=== PATIENT | male | born 1950 | race Caucasian/White ===

== ENCOUNTER 2016-06-25 18:21 | Emergency (ER) | payer MEDICARE ==
[~2016-06-25] VITALS: Ht 180.3 cm; Wt 117.1 kg
[~2016-06-25 18:21] MED LIST: AMLO5 PO; ASPI81CH CHEW; CHLORO250 PO; DICL75TA PO; ENAL20TA PO; FENO48TA PO; GLIM4TAB PO; GLUC500C5 PO; HYDR-3533 PO; HYDR25TA5 PO; METO100T PO; MULTCAP13 PO; NIAC500T5 PO; OMEP20TA PO; PRAV40TA2 PO; PROM25TA5 PO; SPIRCAP INH; SYMB160A INH; ZITHTAB PO
[2016-06-25 18:31] VITALS: BP 148/81; PULSE 67; RESP 16; TEMP 99.2; O2SAT 96
[2016-06-25] MEDS ORDERED: LOSA100T PO (19:02)
[2016-06-25] MEDS ORDERED: ALPR0.5T3 PO (19:02)
[2016-06-25] MEDS ORDERED: CYCL1TAB29 PO (20:05)
[2016-06-25] MEDS ORDERED: MOBI15TA PO (20:05)
--- NOTE | 2016-06-25 20:06 | PD ---
HPI Chief Complaint: Pain: Acute or Chronic Time Seen by Provider: 19:31 Travel History International Travel<30 days: No Contact w/Intl Traveler<30days: No Traveled to known affect area: No History of Present Illness HPI The patient is a 66-year-old male with a history of chronic back pain who complains of left back pain radiating to the left abdominal area. The patient has had multiple MRIs, his latest was in March of the back and nothing surgical, be done about this. The patient states he took 2 hydrocodone tablets today and the pain is starting to go away, the hydrocodone is taking effect. He is followed by Dr. Gabriel for this pain. The hydrocodone was written by Dr. Michael Thayer. The patient has been seen multiple times in the last few months for this pain. PFSH Past Medical History Hx Anticoagulant Therapy: Yes (asa 81mg) Arthritis: Yes Anxiety: Yes Depression: No Heart Rhythm Problems: No Cancer: No Cardiovascular Problems: Yes (htn on med) High Cholesterol: Yes Chemotherapy: No Chest Pain: No COPD: Yes Cerebrovascular Accident: No Diabetes: Yes (type 2) Patient Takes Glucophage: No Diminished Hearing: No Endocrine: Yes Gastrointestinal Disorders: Yes GERD: Yes Glaucoma: No Genitourinary: No Hepatitis: No Hiatal Hernia: No Hypertension: Yes Musculoskeletal: Yes (scoliosis, DDD) Neurologic: Yes Psychiatric: Yes Reproductive: No Respiratory: Yes (copd) Integumentary: No Immunizations Current: Yes Thyroid Disease: No Ulcer: Yes Tetanus Vaccination: > 5 Years Past Surgical History Hysterectomy: No Thoracic Surgery: No Other Surgery: Yes (COLONOSCOPY Mar) Social History Alcohol Use: Yes (OCCASSIONAL) Tobacco Use: No (quit November,) Substance Use: No Allergies-Medications (Allergen,Severity, Reaction): Coded Allergies: No Known Allergies (Unverified , 06/25/16) Reported Meds & Prescriptions Reported Meds & Active Scripts Active Lortab (Hydrocodone-Acetaminophen) 5-325 Mg Tab 1 Tab PO Q6H PRN Reported Alprazolam 0.5 Mg Tab 0.5 Mg PO HS PRN Losartan (Losartan Potassium) 100 Mg Tab 100 Mg PO DAILY Norvasc (Amlodipine Besylate) 5 Mg Tab 5 Mg PO DAILY Aspirin 81 Mg Chew 81 Mg CHEW DAILY Multi Complete (Multiple Vitamins W/ Minerals) 1 Cap Cap 1 Cap PO DAILY Niacin 500 Mg Tab 500 Mg PO TID Fenofibrate 48 Mg Tab 160 Mg PO HS Omeprazole 20 Mg Tab 20 Mg PO HS Symbicort Inh (Budesonide/Formoterol Fumarate) 160-4.5 Mcg/Act Aero 2 Puff INH Q12HR Glimepiride 4 Mg Tab 4 Mg PO DAILY Take with breakfast or first main meal Hydrochlorothiazide 25 Mg Tab 25 Mg PO DAILY Diclofenac Sodium DR (Diclofenac Sodium) 75 Mg Tabdr 75 Mg PO BID Metoprolol Tartrate 100 Mg Tab 50 Mg PO BID Pravastatin 40 Mg Tab 40 Mg PO HS Review of Systems Except as stated in HPI: all other systems reviewed are Neg Physical Exam Narrative GENERAL: The patient is alert, oriented 3 in moderate apparent distress with his back pain. His blood pressure is 148/81, temperature 99.2 but the rest the vital signs are normal. SKIN: Warm and dry. No skin rash is seen. There is an apparent lipoma/fatty tumor on the back that the is concerned about that the patient has no symptoms with this. HEAD: Atraumatic. Normocephalic. EYES: Pupils equal and round. No scleral icterus. No injection or drainage. ENT: No nasal bleeding or discharge. Mucous membranes pink and moist. NECK: Trachea midline. No JVD. CARDIOVASCULAR: Regular rate and rhythm. No murmur appreciated. RESPIRATORY: No accessory muscle use. Clear to auscultation. Breath sounds equal bilaterally. GASTROINTESTINAL: Abdomen soft, non-tender, nondistended. Hepatic and splenic margins not palpable. MUSCULOSKELETAL: No obvious deformities. No clubbing. No cyanosis. No edema. There is tenderness over the left back diffusely, well away from the thoracic or lumbar spine. No deformities noted. Straight leg raising is normal NEUROLOGICAL: Awake and alert. No obvious cranial nerve deficits. Motor grossly within normal limits. Normal speech. PSYCHIATRIC: Appropriate mood and affect; insight and judgment normal. Data Data Last Documented VS Vital Signs Date Time Temp Pulse Resp B/P Pulse Ox O2 Delivery O2 Flow Rate FiO2 06/25/16 18:31 99.2 67 16 148/81 96 MDM Medical Decision Making Medical Screen Exam Complete: Yes Emergency Medical Condition: Yes Medical Record Reviewed: Yes Differential Diagnosis Acute exacerbation of chronic back pain, herniated nucleus pulposus Narrative Course The patient has acute exacerbation of chronic back pain. Apparently, there is no surgical solution for this and the patient will need to follow-up with Dr. Gabriel for pain control. Plan: The patient can take the medication written by Dr. Thayer. I will add Flexeril and Mobic to his pain regimen. He needs to follow-up with Dr. Gabriel. Additional Instructions: As we discussed, follow-up with Dr. Gabriel. The Flexeril is 3 times daily and the Mobic is once daily. Med/Other Pt SpecificInfo: Prescription(s) given Scripts Cyclobenzaprine (Flexeril)10 Mg Tab10 Mg PO TID #60 TAB Ref 0 Prov:Landon Hawthorne MD 06/25/16 Meloxicam (Mobic)15 Mg Tab15 Mg PO DAILY #30 TAB Ref 0 Prov:Landon Hawthorne MD 06/25/16 Disposition: 01 DISCHARGE HOME Condition: Stable Landon Hawthorne MD Jun 25, 2016 20:06
[2016-06-25] MEDS ORDERED: KETOROLAC TROMETHAMINE 60 MG/2 ML (IM) VIAL IM ONE (20:15)
[2016-06-25] MEDS ORDERED: ORPHENADRINE INJ 60 MG/2 ML AMP IM ONE (20:15)
[2016-06-25 20:58] VITALS: BP 147/79
[2016-09-25] MEDS ORDERED: INSULIN SQ (07:30)
[2016-09-25] MEDS ORDERED: BOSW5TAB PO (07:30)
== END 2016-06-25 20:59 | disposition home or self-care (01) ==
LOC: PHED 18:21
DX: M54.5 Low back pain (principal); G89.29 Other chronic pain; Z79.01 Long term (current) use of anticoagulants; I10 Essential (primary) hypertension; E78.00 Pure hypercholesterolemia, unspecified; J44.9 Chronic obstructive pulmonary disease, unspecified; E11.9 Type 2 diabetes mellitus without complications; K21.9 Gastro-esophageal reflux disease without esophagitis; Z87.891 Personal history of nicotine dependence
CPT/HCPCS: 96372; 99283; J1885; J2360

== ENCOUNTER 2016-07-31 13:07 | Emergency (ER) | payer MEDICARE ==
[~2016-07-31] VITALS: Ht 180.3 cm; Wt 115.0 kg
[~2016-07-31 13:07] MED LIST changes: +ALPR0.5T3 PO; -CHLORO250 PO; +CYCL1TAB29 PO; -ENAL20TA PO; -GLUC500C5 PO; +LOSA100T PO; +MOBI15TA PO; -PROM25TA5 PO; -SPIRCAP INH; -ZITHTAB PO
[2016-07-31 13:09] VITALS: BP 167/74; PULSE 18; PULSE 78; RESP 15; TEMP 97.9; O2SAT 95
--- NOTE | 2016-07-31 14:40 | PD ---
HPI Chief Complaint: Edema Time Seen by Provider: 14:36 Travel History International Travel<30 days: No Contact w/Intl Traveler<30days: No Traveled to known affect area: No History of Present Illness HPI Patient is a 66-year-old male presenting to emergency department evaluation of left lower extremity swelling and redness. Patient states this has been ongoing for 10 days, he was prescribed Bactrim and indomethacin per his primary doctor. His primary care provider is Dr. Michael Thayer. Patient was told initially that it was cellulitis and prescribed Bactrim then he was told it was gout and prescribed indomethacin. He states he had an ultrasound performed at [facility] last or Sunday which was negative per his report. He denies any significant pain. 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 Patient reports that the swelling is better first thing in the morning and gets worse by the end of the day. His past medical history includes type 2 diabetes, currently insulin-dependent. Hypertension, hyperlipidemia, COPD. PFSH Past Medical History Hx Anticoagulant Therapy: Yes (asa 81mg) Arthritis: Yes Anxiety: Yes Depression: No Heart Rhythm Problems: No Cancer: No Cardiovascular Problems: Yes (htn on med) High Cholesterol: Yes Chemotherapy: No Chest Pain: No COPD: Yes Cerebrovascular Accident: No Diabetes: Yes Diminished Hearing: No Endocrine: Yes Gastrointestinal Disorders: Yes GERD: Yes Glaucoma: No Genitourinary: No Hepatitis: No Hiatal Hernia: No Hypertension: Yes Musculoskeletal: Yes (scoliosis, DDD) Neurologic: Yes Psychiatric: Yes Reproductive: No Respiratory: Yes (copd) Integumentary: No Immunizations Current: Yes Thyroid Disease: No Ulcer: Yes Past Surgical History Hysterectomy: No Thoracic Surgery: No Other Surgery: Yes (COLONOSCOPY Mar) Social History Alcohol Use: Yes (OCCASSIONAL) Tobacco Use: No (quit November,) Substance Use: No Allergies-Medications (Allergen,Severity, Reaction): Coded Allergies: No Known Allergies (Unverified , 07/31/16) Reported Meds & Prescriptions Reported Meds & Active Scripts Active Flexeril (Cyclobenzaprine HCl) 10 Mg Tab 10 Mg PO TID Mobic (Meloxicam) 15 Mg Tab 15 Mg PO DAILY Lortab (Hydrocodone-Acetaminophen) 5-325 Mg Tab 1 Tab PO Q6H PRN Reported Alprazolam 0.5 Mg Tab 0.5 Mg PO HS PRN Losartan (Losartan Potassium) 100 Mg Tab 100 Mg PO DAILY Norvasc (Amlodipine Besylate) 5 Mg Tab 5 Mg PO DAILY Aspirin 81 Mg Chew 81 Mg CHEW DAILY Multi Complete (Multiple Vitamins W/ Minerals) 1 Cap Cap 1 Cap PO DAILY Niacin 500 Mg Tab 500 Mg PO TID Fenofibrate 48 Mg Tab 160 Mg PO HS Omeprazole 20 Mg Tab 20 Mg PO HS Symbicort Inh (Budesonide/Formoterol Fumarate) 160-4.5 Mcg/Act Aero 2 Puff INH Q12HR Glimepiride 4 Mg Tab 4 Mg PO DAILY Take with breakfast or first main meal Hydrochlorothiazide 25 Mg Tab 25 Mg PO DAILY Diclofenac Sodium DR (Diclofenac Sodium) 75 Mg Tabdr 75 Mg PO BID Metoprolol Tartrate 100 Mg Tab 50 Mg PO BID Pravastatin 40 Mg Tab 40 Mg PO HS Review of Systems Except as stated in HPI: all other systems reviewed are Neg Cardiovascular: Positive: Edema, No: Chest Pain or Discomfort Respiratory: No: Shortness of Breath Skin: Positive Rash, Positive Change in Pigmentation Physical Exam Narrative GENERAL: Obese, well-developed, alert male. Resting comfortably in no acute distress. SKIN: Warm and dry. HEAD: Atraumatic. Normocephalic. EYES: Pupils equal and round. No scleral icterus. No injection or drainage. ENT: No nasal bleeding or discharge. Mucous membranes pink and moist. NECK: Trachea midline. No JVD. CARDIOVASCULAR: Regular rate and rhythm. No murmur appreciated. RESPIRATORY: No accessory muscle use. Clear to auscultation. Breath sounds equal bilaterally. GASTROINTESTINAL: Abdomen soft, non-tender, nondistended. Hepatic and splenic margins not palpable. MUSCULOSKELETAL: No obvious deformities. No clubbing. No cyanosis. 1+ edema to left lower extremity, erythema noted. Flaking dry skin to the interdigital spaces on the left foot as well as the medial aspect of the left foot area the pedal pulses, brisk capillary refill. NEUROLOGICAL: Awake and alert. No obvious cranial nerve deficits. Motor grossly within normal limits. Normal speech. PSYCHIATRIC: Appropriate mood and affect; insight and judgment normal. Data Data Last Documented VS Vital Signs Date Time Temp Pulse Resp B/P Pulse Ox O2 Delivery O2 Flow Rate FiO2 07/31/16 16:44 74 18 148/76 98 Room Air 07/31/16 13:09 97.9 Orders Us Leg Venous Doppler (07/31/16 ) Complete Blood Count With Diff (07/31/16 14:34) Basic Metabolic Panel (Bmp) (07/31/16 14:34) Labs Laboratory Tests Test 07/31/16 15:35 White Blood Count 5.9 TH/MM3 Red Blood Count 4.70 MIL/MM3 Hemoglobin 14.1 GM/DL Hematocrit 40.6 % Mean Corpuscular Volume 86.3 FL Mean Corpuscular Hemoglobin 29.9 PG Mean Corpuscular Hemoglobin 34.7 % Concent Red Cell Distribution Width 12.9 % Platelet Count 283 TH/MM3 Mean Platelet Volume 7.2 FL Neutrophils (%) (Auto) 58.2 % Lymphocytes (%) (Auto) 32.3 % Monocytes (%) (Auto) 6.6 % Eosinophils (%) (Auto) 1.9 % Basophils (%) (Auto) 1.0 % Neutrophils # (Auto) 3.5 TH/MM3 Lymphocytes # (Auto) 1.9 TH/MM3 Monocytes # (Auto) 0.4 TH/MM3 Eosinophils # (Auto) 0.1 TH/MM3 Basophils # (Auto) 0.1 TH/MM3 CBC Comment DIFF FINAL Differential Comment Sodium Level 138 MEQ/L Potassium Level 4.1 MEQ/L Chloride Level 104 MEQ/L Carbon Dioxide Level 24.8 MEQ/L Anion Gap 9 MEQ/L Blood Urea Nitrogen 27 MG/DL Creatinine 1.47 MG/DL Estimat Glomerular Filtration 48 ML/MIN Rate Random Glucose 171 MG/DL Calcium Level 9.2 MG/DL MDM Medical Decision Making Medical Screen Exam Complete: Yes Emergency Medical Condition: Yes Interpretation(s) Vital Signs Date Time Temp Pulse Resp B/P Pulse Ox O2 Delivery O2 Flow Rate FiO2 07/31/16 13:09 97.9 78 15 167/74 95 Differential Diagnosis DVT versus cellulitis versus venous insufficiency versus tinea versus other Narrative Course Patient is a 66-year-old male presenting to the emergency department for evaluation of left lower extremity erythema and edema. Patient's been evaluated by his primary doctor and he is currently on Bactrim with 1 day left in the prescribed course of therapy. He does report some improvement in the swelling to his left lower leg. Physical exam is consistent with a tinea to the left foot and interdigital spaces. Ultrasound is ordered and pending. We' ll check CBC and BMP as well. Patient states that he was told by his primary to come to the emergency department however when asked he states that the nurse told him he would be able to get labs performed quickly here. Workup initiated in triage, care of patient will be transferred to provider with a medical bed is available. Melody Zaidi Jul 31, 2016 14:40
--- NOTE | 2016-07-31 15:40 | RADRPT ---
EXAM DATE/TIME: 07/31/2016 14:42 [facility] COMPARISON: No previous studies available for comparison. EXTERNAL COMPARISON : [facility], US LEG, LEFT VENOUS DOPPLER, July 25, 2016 INDICATIONS : Left leg pain. MEDICAL HISTORY : Hypercholesterolemia. Hypertension. Chronic obstructive pulmonary disease. Anticoagulant therapy. Dyspnea. Emphysema. GERD. Arthritis. Diabetes. SURGICAL HISTORY : Colonoscopy. ENCOUNTER: Subsequent ACUITY: 1 week PAIN SCORE: 2/10 LOCATION: Left leg. TECHNIQUE: Venous ultrasound of the leg was performed from the inguinal ligament to the proximal calf. Real-jose e, color Doppler and spectral tracing, compression and augmentation techniques were used. FINDINGS: There is normal compressibility of the deep venous system from the inguinal region to the proximal ca lf. No echogenic clot is seen in the lumen of the common femoral, femoral, popliteal, and posterior tibial veins. There is a normal response of the venous system to proximal and distal augmentation an d respiration. CONCLUSION: No DVT. Roshan Forde MD on July 31, 2016 at 15:36 Board Certified Radiologist. This report was verified electronically.
[2016-07-31 15:57] LABS: AUTOMATED NEUTROPHIL # 3.5 TH/MM3 (1.8-7.7); BASOPHIL # 0.1 TH/MM3 (0-0.2); EOSINOPHIL # 0.1 TH/MM3 (0-0.4); EOSINOPHIL % 1.9 % (0.0-4.0); HEMATOCRIT 40.6 % (39.0-51.0); HEMO FLAGS DIFF FINAL; LYMPH % 32.3 % (9.0-44.0); LYMPHOCYTE # 1.9 TH/MM3 (1.0-4.8); MEAN CELL VOLUME 86.3 FL (80.0-100.0); MEAN CORPUSCULAR HEMOGLOBIN 29.9 PG (27.0-34.0); MEAN CORPUSCULAR HGB CONC 34.7 % (32.0-36.0); MONO % 6.6 % (0.0-8.0); NEUT % 58.2 % (16.0-70.0); PLATELET COUNT 283 TH/MM3 (150-450); RED CELL DISTRIBUTION WIDTH 12.9 % (11.6-17.2); WHITE BLOOD COUNT 5.9 TH/MM3 (4.0-11.0)
[2016-07-31 16:27] LABS: BICARBONATE 24.8 MEQ/L (21.0-32.0); POTASSIUM 4.1 MEQ/L (3.5-5.1)
[2016-07-31 16:44] VITALS: BP 148/76; PULSE 74; RESP 18; O2SAT 98
--- NOTE | 2016-07-31 16:58 | PD ---
Data Data Last Documented VS Vital Signs Date Time Temp Pulse Resp B/P Pulse Ox O2 Delivery O2 Flow Rate FiO2 07/31/16 16:44 74 18 148/76 98 Room Air 07/31/16 13:09 97.9 Orders Us Leg Venous Doppler (07/31/16 ) Complete Blood Count With Diff (07/31/16 14:34) Basic Metabolic Panel (Bmp) (07/31/16 14:34) Labs Laboratory Tests Test 07/31/16 15:35 White Blood Count 5.9 TH/MM3 Red Blood Count 4.70 MIL/MM3 Hemoglobin 14.1 GM/DL Hematocrit 40.6 % Mean Corpuscular Volume 86.3 FL Mean Corpuscular Hemoglobin 29.9 PG Mean Corpuscular Hemoglobin 34.7 % Concent Red Cell Distribution Width 12.9 % Platelet Count 283 TH/MM3 Mean Platelet Volume 7.2 FL Neutrophils (%) (Auto) 58.2 % Lymphocytes (%) (Auto) 32.3 % Monocytes (%) (Auto) 6.6 % Eosinophils (%) (Auto) 1.9 % Basophils (%) (Auto) 1.0 % Neutrophils # (Auto) 3.5 TH/MM3 Lymphocytes # (Auto) 1.9 TH/MM3 Monocytes # (Auto) 0.4 TH/MM3 Eosinophils # (Auto) 0.1 TH/MM3 Basophils # (Auto) 0.1 TH/MM3 CBC Comment DIFF FINAL Differential Comment Sodium Level 138 MEQ/L Potassium Level 4.1 MEQ/L Chloride Level 104 MEQ/L Carbon Dioxide Level 24.8 MEQ/L Anion Gap 9 MEQ/L Blood Urea Nitrogen 27 MG/DL Creatinine 1.47 MG/DL Estimat Glomerular Filtration 48 ML/MIN Rate Random Glucose 171 MG/DL Calcium Level 9.2 MG/DL MDM Supervised Visit with ROSA: Yes Narrative Course Patient care assumed by me from Melody Zaidi PA-C. Patient was seen as part of provider in triage screening. Agree with the ROSA documentation. This is a 66-year-old male presents emergency Department with nontender bilateral lower extremity mild edema. Patient had been treated by cellulitis and states that the redness of his left lower extremity has gotten significant better since completing the antibiotics. He states the swelling has not gone away and this is what he came in for evaluation for today. BMP and CBC was obtained as part of provider in triage screening is within normal limits. Patient has no shortness of breath no change in skin color no history of liver kidney or heart disease. Ultrasound was obtained of his left lower extremities and shows no evidence of DVT. Last 24 hours Impressions Lower Extremity Ultrasound 07/31/16 0000 Signed Impressions: Service Date/Time: Sunday, July 31, 2016 14:42 - CONCLUSION: No DVT. Roshan Forde MD GENERAL: Well-developed well-nourished apparent distress SKIN: Warm and dry. No saline his no erythema bilateral lower extremity's. Skin is intact. HEAD: Atraumatic. Normocephalic. EYES: Pupils equal and round. No scleral icterus. No injection or drainage. ENT: No nasal bleeding or discharge. Mucous membranes pink and moist. NECK: Trachea midline. No JVD. CARDIOVASCULAR: Regular rate and rhythm. No murmur appreciated. RESPIRATORY: No accessory muscle use. Clear to auscultation. Breath sounds equal bilaterally. GASTROINTESTINAL: Abdomen soft, non-tender, nondistended. Hepatic and splenic margins not palpable. MUSCULOSKELETAL: No obvious deformities. No clubbing. No cyanosis. There is 2 + pitting bilateral equal edema from the distal third of the tibia into the foot. Pulses motor and sensory are intact distally in all 4 extremities. Homans sign is negative. NEUROLOGICAL: Awake and alert. No obvious cranial nerve deficits. Motor grossly within normal limits. Normal speech. PSYCHIATRIC: Appropriate mood and affect; insight and judgment normal. I discussed with the patient that there is no evidence for end organ failure causing his edema, consider venous insufficiency. On this note patient states that he does follow the vascular surgeon and states that his veins are gradually becoming more dilated and there consider doing surgery on him, he is not exactly sure what this diagnosis is called and on his description is hard for me to obtain as well. Certainly does not sound like a AAA. I discussed these probably should follow-up with his vascular surgeon at this point and recommend ANA webber. Discussed return to ED criteria and also follow up with his primary care physician. He stable for discharge at this time. Diagnosis Primary Impression: Pedal edema Additional Instruction: ANA webber Disposition: 01 DISCHARGE HOME Condition: Stable Corona Dewitt MD Jul 31, 2016 16:58
[2016-09-25] MEDS ORDERED: INSULIN SQ (07:30)
[2016-09-25] MEDS ORDERED: BOSW5TAB PO (07:30)
== END 2016-07-31 17:00 | disposition home or self-care (01) ==
LOC: NEPC 13:07
DX: R60.0 Localized edema (principal); L53.9 Erythematous condition, unspecified; E11.9 Type 2 diabetes mellitus without complications; I10 Essential (primary) hypertension; E78.5 Hyperlipidemia, unspecified; Z79.4 Long term (current) use of insulin; Z87.09 Personal history of other diseases of the respiratory system; Z79.82 Long term (current) use of aspirin; Z87.39 Personal history of other diseases of the musculoskeletal system and connective tissue; Z86.59 Personal history of other mental and behavioral disorders; Z87.19 Personal history of other diseases of the digestive system; Z86.69 Personal history of other diseases of the nervous system and sense organs; Z87.891 Personal history of nicotine dependence
CPT/HCPCS: 80048; 85025; 93971

== ENCOUNTER 2017-10-04 06:32 | Day surgery (SDC) | payer MEDICARE ==
[~2017-10-04] VITALS: Ht 180.3 cm; Wt 120.8 kg
[~2017-10-04 06:32] MED LIST changes: +ASPI-516 CHEW; -ASPI81CH CHEW; +BOSW5TAB PO; -CYCL1TAB29 PO; +INSULIN SQ; -MOBI15TA PO; -OMEP20TA PO; +OMEP20TA93 PO; -SYMB160A INH
[2017-10-04] MEDS ORDERED: IOHEXOL 350 MG/ML 50 ML BTL (for Cath Lab) OTHER ONE (06:33)
[2017-10-04] MEDS ORDERED: IOHEXOL 350 MG/ML 100 ML BTL (for Cath Lab) OTHER ONE (06:33)
[2017-10-04] MEDS ORDERED: SODIUM CHLOR 0.9% 1000 ML INJ 1,000 ML IV SCH ×2 (06:43→10:26)
[2017-10-04] MEDS ORDERED: diphenhydrAMINE HCL 50 MG/ML VIAL IV PUSH SCH (06:45)
[2017-10-04] MEDS ORDERED: MIDAZOLAM HCL 2 MG/2 ML VIAL IV PUSH SCH (06:45)
[2017-10-04] MEDS ORDERED: ASPIRIN 325 MG TAB PO SCH (06:45)
[2017-10-04 07:45] VITALS: BP 157/79; PULSE 53; RESP 18; TEMP 98.5; O2SAT 91
[2017-10-04] MEDS ORDERED: PARO10TA2 PO (08:09)
[2017-10-04] MEDS ORDERED: LANTUS2P SQ (08:09)
[2017-10-04] MEDS ORDERED: METF1000 PO (08:09)
[2017-10-04] MEDS ORDERED: KLOR20TA3 PO (08:09)
[2017-10-04] MEDS ORDERED: ATOR20TA15 PO (08:09)
[2017-10-04] MEDS ORDERED: FLUT1SPR5 EACH NARE (08:09)
[2017-10-04] MEDS ORDERED: FURO1TAB60 PO (08:09)
[2017-10-04] MEDS ORDERED: MULTIVITAMIN PO (08:09)
[2017-10-04] MEDS ORDERED: DOCU1CAP66 PO (08:09)
[2017-10-04] MEDS ORDERED: CLAR10CA3 PO (08:09)
[2017-10-04 08:18] LABS: BICARBONATE 24.8 MEQ/L (21.0-32.0); CALCIUM 9.7 MG/DL (8.5-10.1); CREATININE 1.42 MG/DL (0.60-1.30)
[2017-10-04] MEDS ORDERED: HEPARIN SODIUM - IV 10,000 UNITS/10 ML VIAL ONE (08:19)
[2017-10-04] MEDS ORDERED: HEPARIN-NS/PF FLUSH BAG 2,000 ML IV FLUSH ONE (08:19)
[2017-10-04] MEDS ORDERED: MIDAZOLAM HCL 2 MG/2 ML VIAL ONE (08:51)
[2017-10-04] MEDS ORDERED: NITROGLYCERIN INJ 5 ML ONE (09:37)
[2017-10-04] MEDS ORDERED: CLOPIDOGREL 300 MG TAB ONE (10:00)
--- NOTE | 2017-10-04 10:25 | CATHPROC ---
[place] HIS Report Study Information Study Number Admission Scheduled Start Study Start [id number] Oct 04 2017 6:32AM 10/04/2017 Oct 04 2017 7:49AM [place] Service Cardiac Catheterization Admit Source Facility Department Other [facility] - Regional Guide Physician and Clinical Staff Initial MD Gilman, Luis Mixer Driversusana Potts RN, Damaso Recorder Marcia Soto ,RT(R) Scrub Yari Poon,RT(R) (BS) Procedures Performed Procedure Location (Site) Vessel Name Coronary Angiograms LCA Left Coronary Coronary Angiograms RCA Right Coronary Drug Eluting Inflatio LAD Mid Left Coronary PTCA LAD Mid Left Coronary Wire insertion Fem Art (right) Femoral Art Equipment Time Telephony Engineer Description Size Mfg Part Number Used/Scraped [id number] 07:50 SANTACRUZ JAEGER SWAN ERIC CATHETER FR 7 Used *[id number] TRANSDUCER, TRUWAVE [id number] 07:50 SANTACRUZ JAEGER * Used W/STOCKCOCK *[id number] TRANSDUCER, TRUWAVE [id number] 07:50 SANTACRUZ JAEGER * Used W/STOCKCOCK *[id number] 09:27 BOSTON SCIENTIFIC WIRE, LUGE 182CM 182CM Used *[id number] 10:03 CARDIInfoReach MEDICAL VASCADE, FR6 CLOSURE SYSTEM FR 6\7 Used *[id number] *[id number] *[id number] *[id number] 07:50 Paymentus INDUSTRIES PACK, CCL CUSTOM * Used *[id number] 07:50 Paymentus PACER PEN, SKIN DUAL W/ RULER * Used *[id number] BALLOON, 2.5 X 12MM NC [id number] 09:39 MEDTRONIC 12MM Used EUPHORA *[id number] BALLOON, 2.75 X 15MM NC [id number] 09:53 MEDTRONIC 15MM Used EUPHORA *[id number] 09:45 MEDTRONIC STENT, 2.5 18MM CONSTANCE 2.5 18MM Used *[id number] 09:42 Diagnovus MEDICAL 30 TREVIN INDEFLATOR Used *[id number] 07:50 Pick1 SHEATH, FR6.5 PRELUDE 11CM FR 6.5 038ACT Used *[id number] 07:50 MERIT MEDICAL WIRE, 3MMJ .035 180CM 180CM Used *[id number] 07:50 NAMIC MANIFOLD, 2 PORT * Used *[id number] 07:50 NAMIC MANIFOLD, 4 PORT * Used *[id number] 07:50 NYCOMED OMNIPAQUE, 350 MG, 150ML 150ML [id number] Used 08:35 NYCOMED OMNIPAQUE, 350 MG, 150ML 150ML [id number] Used 10:01 NYCOMED OMNIPAQUE, 350 MG, 50ML 50ML [id number] Used [id number] 07:50 JENSEN MEDICAL BLANKET,WARM AIR CCL * Used *[id number] 07:50 TERUMO MEDICAL SHEATH, FR7 TERUMO (10CM) FR 7 Used *[id number] Equipment Model, Serial, Lot Number and Expiration Data Description Model Number Serial Number Lot Number Expiration Date STENT, 2.5 18MM CONSTANCE [id number] 06-24-2019 History: Current Medications Medication Dosage/Unit Route Frequency Last Date/Time Taken Beta Elliot ASA NORVASC History: Allergies Allergy Reaction No Known Allergies CINDY Inhibitors COUGH History: Risk Factors Family History of Hypertension Dyslipidemia Previous MO Previous Heart Failure Premature CAD Yes Yes No No No Prior Valve Prior PCI Prior CABG Surgery No No No Cerebrovascular Peripheral Artery Chronic Lung On Dialysis Diabetes Diabetes Therapy Disease Disease Disease No No No Yes Yes Insulin History: Stress Tests Stress or Imaging Studies Performed No Labs Hgb (g/dl) Hct (%) WBC (l/cumm) Platelets (thousands) 11.60-17.00 35.00-51.00 4.00-11.00 150.00-450.00 12.9 40.6 7.5 223 Creatinine (mg/dl) 0.50-1.30 1.4 CPK-MB (ng/ML) 0.50-3.60 Not Drawn Medication Medication Total Dose (Bolus/Oral) Medication Total Dosage/Unit 1% XYLOCAINE 20 mL FENTANYL 50 mcg HEPARIN 05818 units PLAVIX 600 mg VERSED 2 mg Medications (Bolus/Oral) Medication Time Given Dosage/Unit Administered By Reason VERSED 10/04/2017 8:52:43 AM 2 mg Damaso Potts RN 2 mg VERSED given in lab by Damaso Potts RN in Left Hand via Peripheral IV. Ordered by Kemal Gilman. FENTANYL 10/04/2017 8:53:36 AM 25 mcg Damaso Potts RN 25 mcg FENTANYL given in lab by Damaso Potts RN in Left Hand via Peripheral IV. Ordered by Luis Gilman. 1% XYLOCAINE 10/04/2017 8:54:00 AM 20 mL Luis Gilman 20 mL 1% XYLOCAINE given in lab by Luis Gilman in Right Groin via Subcutaneous. Ordered by Luis Oglesby. FENTANYL 10/04/2017 9:00:00 AM 25 mcg Damaso Potts RN 25 mcg FENTANYL given in lab by Damaso Potts RN in Left Hand via Peripheral IV. Ordered by Luis Gilman. HEPARIN 10/04/2017 9:26:25 AM 5000 units Damaso Potts RN 5000 units HEPARIN given in lab by Damaso Potts RN in Left Hand via Peripheral IV. Ordered by Luis Russell. HEPARIN 10/04/2017 9:36:33 AM 3000 units Damaso Potts RN 3000 units HEPARIN given in lab by Damaso Potts RN via Peripheral IV. Ordered by Luis Gilman. HEPARIN 10/04/2017 9:51:43 AM 2000 units Damaso Potts RN 2000 units HEPARIN given in lab by Damaso Potts RN in Left Hand via Peripheral IV. Ordered by Luis Russell. PLAVIX 10/04/2017 10:07:42 AM 600 mg Damaso Potts RN 600 mg PLAVIX given in lab by Damaso Potts RN via Oral. Ordered by Luis Gilman. Medication (Drip) Medication Time Given Dosage/Unit Concentration/Unit Diluent (ml) Solution IV Solutions 10/04/2017 8:22:01 AM 50 mL (IV) NaCl .9 Patient arrived on IV Solutions in Left Hand via Peripheral IV. Pump/Drip Flow using NaCl .9. Initial Case Assessment Cardiovascular HR Rhythm NIBP 56 sr 134/72 Edema Present Skin color Skin Mild Normal Warm Dry Circulatory - Right Pulses Dorsalis Pedis Femoral 2 2 Scale (0,1,2,3,4,d) Circulatory - Left Pulses Dorsalis Pedis Femoral 2 2 Scale (0,1,2,3,4,d) Neurological State Oriented to time-place- Alert Moves all extremities person Respiration - General Respiration Rate SpO2 (%) (B/min) 19 97 Final Case Assessment Cardiovascular HR Rhythm NIBP 56 sr 134/72 Edema Present Skin color Skin Mild Normal Warm Dry Circulatory - Right Pulses Dorsalis Pedis Femoral 2 2 Scale (0,1,2,3,4,d) Circulatory - Left Pulses Dorsalis Pedis Femoral 2 2 Scale (0,1,2,3,4,d) Neurological State Oriented to time-place- Alert Moves all extremities person Respiration - General Respiration Rate SpO2 (%) (B/min) 19 97 Chronological Log Time Study Chronological Log 8:11:15 Patient arrived via Bed. 8:11:18 Patient Name, D.O.B, / Armband Verified By R.N. 8:21:49 Consent signed by the physician and the patient and verified by the Regional Guide staff. 8:21:51 Pre-op and post- op instructions given; patient acknowledges understanding of instructions. 8:21:52 Verbal Stimulation=2 Physical Stimulation=2 Airway=2 Respiration=2 TOTAL=8. (0=absent, 1=li mited, 2=present) 8:21:54 Patient has been NPO for More than 6Hrs. 8:21:56 Skin Breakdown- none per patient 8:21:58 Patient Warmer Placed on the Table. 8:21:59 Abel Prominences Protected 8:22:00 A # 20 IV was noted in the Hand (left). Grade = 0 8:22:01 Patient arrived on IV Solutions in Left Hand via Peripheral IV. Pump/Drip Flow using NaCl . 9. Assessment: Initial Case, HR=56 BPM, Rhythm=sr, UYSG=259/72 mmhg, Edema=Mild, Color=Normal, Ski n = Warm, Dry Right Pulses: Prashant Ped=2, Femoral=2 8:22:02 Left Pulses: Prashant Ped=2, Femoral=2 Neurological: State=Alert, Ox3, FRAZIER Respiration: Resp=19 B/min, SpO2=97 % 8:22:02 History and physical on the chart or being dictated. Vitals capture started with the following parameters, Patient=Adult, Interval=5 min, Initial Pr vynxtk=119 mmHg, 8:22:46 Deflation Rate=5 mmHg, Cuff placed on Left Arm 8:23:35 HR=56 bpm, EMME=965/72 mmhg, SpO2=96.0 %, Resp=19 B/min, Pain=0, Jigna=10, Muñiz=2 8:27:28 Bilateral groins prepped with 2% chlorhexidine, and draped after a 3 minute waiting time. 8:28:59 HR=57 bpm, JMOB=611/75 mmhg, SpO2=92.0 %, Resp=17 B/min, Pain=0, Jigna=10, Muñiz=2 8:29:38 MD paged 8:29:41 Reference ECG taken 8:32:59 Pressure channel 1 zeroed. 8:33:29 HR=55 bpm, CSBC=953/78 mmhg, SpO2=94.0 %, Resp=14 B/min, Pain=0, Jigna=10, Muñiz=2 8:37:28 MD responded 8:38:30 HR=56 bpm, CCJK=052/74 mmhg, SpO2=95.0 %, Resp=21 B/min, Pain=0, Jigna=10, Muñiz=2 8:41:36 MD arrived. 8:44:00 HR=54 bpm, ZQXR=651/79 mmhg, SpO2=95.0 %, Resp=21 B/min, Pain=0, Jigna=10, Muñiz=2 8:48:28 HR=54 bpm, YTWN=624/78 mmhg, SpO2=96 %, Resp=20 B/min, Pain=0, Jigna=10, Muñiz=2 Time Out. Correct patient, correct procedure, correct physician, power injector not loaded with contrast with surgical 8:50:40 team present. Time Out Concurred by MD and individual staff in procedure. 8:51:37 Case Start 8:52:43 2 mg VERSED given in lab by Damaso Potts RN in Left Hand via Peripheral IV. Ordered by Luis Oglesby. 8:53:29 HR=52 bpm, RWHY=720/74 mmhg, SpO2=94.0 %, Resp=15 B/min, Pain=0, Jigna=10, Muñiz=2 8:53:36 25 mcg FENTANYL given in lab by Damaso Potts RN in Left Hand via Peripheral IV. Ordered by Luis Santiago. 8:54:00 20 mL 1% XYLOCAINE given in lab by Luis Gilman in Right Groin via Subcutaneous. Ordered by Luis Gilman. 8:55:43 Access site was Radial Artery. 8:55:56 A SHEATH, FR6.5 PRELUDE 11CM FR 6.5 was advanced into the Fem Art (right) using the Percutan eous technique. 8:58:00 Holding Pressure. 8:58:30 HR=51 bpm, UFZB=333/72 mmhg, SpO2=93.0 %, Resp=18 B/min, Pain=0, Jigna=10, Umñiz=2 9:00:00 25 mcg FENTANYL given in lab by Damaso Potts RN in Left Hand via Peripheral IV. Ordered by Luis Santiago. 9:00:19 Access site was Right Femoral Vein. 9:00:27 A SHEATH, FR7 TERUMO (10CM) FR 7 was advanced into the Fem Vein (right) using the Percutaneo us technique. 9:00:53 A SWAN ERIC CATHETER FR 7 was inserted via Fem Vein (right) 9:02:57 Pressure channel 1 zeroed. Recorded Pressure: RA, HR=50, Condition=Condition 1 9:03:18 (Right Atrium) RA 2010/10 9:03:31 HR=55 bpm, RREN=409/65 mmhg, SpO2=87.0 %, Resp=13 B/min, Pain=0, Jigna=10, Muñiz=2 Recorded Pressure: RV, HR=50, Condition=Condition 1 9:03:42 (Right Ventricle) RV 32/9 Recorded Pressure: PCW, HR=53, Condition=Condition 1 9:04:40 (Pulmonary Capillary Wedge) PCW 13 Recorded Pressure: MPA, HR=51, Condition=Condition 1 9:05:09 (Main Pulmonary Artery) MPA 2915/20 Thermo CO: CO=5.5 l/m, HR=54 bpm, Condition=Condition 1. Used in calculation. 9:07:19 Equipment: Description and Size=SWAN ERIC CATHETER FR 7, Type=Bath Probe, CC=0.579 Injectant: Temp=19.0 - 22.0 Celsius, Volume=10.0 ml Thermo CO: CO=6.7 l/m, HR=56 bpm, Condition=Condition 1. Used in calculation. 9:07:46 Equipment: Description and Size=SWAN ERIC CATHETER FR 7, Type=Bath Probe, CC=0.579 Injectant: Temp=19.0 - 22.0 Celsius, Volume=10.0 ml Thermo CO: CO=5.2 l/m, HR=52 bpm, Condition=Condition 1. Used in calculation. 9:08:12 Equipment: Description and Size=SWAN ERIC CATHETER FR 7, Type=Bath Probe, CC=0.579 Injectant: Temp=19.0 - 22.0 Celsius, Volume=10.0 ml 9:08:30 HR=53 bpm, WTJY=157/72 mmhg, SpO2=93.0 %, Resp=19 B/min 9:10:30 Saturation: Site=PA (Pulmonary Artery) , O2=68.4 %, Hgb=12.9 gm/dl, Condition=Condition 1. U sed in calculation. 9:11:03 Saturation: Site=Ao (Aorta) , O2=93.3 %, Hgb=12.9 gm/dl, Condition=Condition 1. Used in calc ulation. 9:11:55 Saturation: Site=RVapx (RV [place]) , O2=68.4 %, Hgb=12.9 gm/dl, Condition=Condition 1. Used in calculation. 9:13:00 Saturation: Site=RAhi (High Right Atrium) , O2=67.1 %, Hgb=12.9 gm/dl, Condition=Condition 1 . Used in calculation. 9:13:45 Saturation: Site=Mary (Mid Right Atrium) , O2=70.7 %, Hgb=12.9 gm/dl, Condition=Condition 1. Used in calculation. 9:14:02 HR=51 bpm, MTYD=593/70 mmhg, SpO2=94.0 %, Resp=13 B/min, Pain=0, Jigna=10, Muñiz=2 9:14:38 Saturation: Site=RAlo (Low Right Atrium) , O2=69.7 %, Hgb=12.9 gm/dl, Condition=Condition 1. Used in calculation. 9:14:53 [place] Eric Catheter Removed A JL 4.5 INFINITI CATHETER FR 6 was advanced over a wire. OMNIPAQUE, 350 MG, 150ML 150ML was use d for 9:15:56 injections. Recorded Pressure: Ao, HR=50, Condition=Condition 1 9:17:17 (Aorta) Ao 123/56/81 9:17:46 The LCA was injected and visualized at various angles. OMNIPAQUE, 350 MG, 150ML 150ML used. 9:18:33 HR=49 bpm, DEWI=894/73 mmhg, SpO2=92.0 %, Resp=17 B/min, Pain=0, Jigna=10, Muñiz=2 9:20:08 Catheter was removed A 3DRC INFINITI CATHETER FR 6 was advanced over a wire. OMNIPAQUE, 350 MG, 150ML 150ML was used for 9:20:22 injections. 9:21:53 The RCA was injected and visualized at various angles. OMNIPAQUE, 350 MG, 150ML 150ML used. 9:22:58 Catheter was removed 9:23:30 HR=67 bpm, XYYB=686/77 mmhg, SpO2=92.0 %, Resp=18 B/min, Pain=0, Jigna=10, Muñiz=2 9:26:25 5000 units HEPARIN given in lab by Damaso Potts RN in Left Hand via Peripheral IV. Ordered b Luis Angel. A XB 3.5 GUIDE CATHETER FR 6 was advanced over a wire. OMNIPAQUE, 350 MG, 150ML 150ML was used f or 9:28:18 injections. 9:28:33 HR=60 bpm, HKNO=257/71 mmhg, SpO2=93.0 %, Resp=16 B/min, Pain=0, Jigna=10, Muñiz=2 9:30:48 Activated Clotting Time Drawn 9:32:03 A WIRE, LUGE 182CM 182CM was inserted via Fem Art (right). 9:34:09 HR=52 bpm, FMKI=494/71 mmhg, SpO2=93.0 %, Resp=19 B/min, Pain=0, Jigna=10, Muñiz=2 9:35:42 ACT (Normal Range 90-180) = 244 9:36:09 Wire removed for re shape 9:36:27 A WIRE, LUGE 182CM 182CM was inserted via Fem Art (right). 9:36:33 3000 units HEPARIN given in lab by Damaso Potts RN via Peripheral IV. Ordered by Luis Gilman. 9:38:27 Interventional wire has crossed the lesion 9:38:35 HR=57 bpm, MWCC=657/79 mmhg, SpO2=93.0 %, Resp=18 B/min, Pain=0, Jigna=10, Muñiz=2 9:39:14 A BALLOON, 2.5 X 12MM NC EUPHORA 12MM was inserted over WIRE, LUGE 182CM 182CM via the Fem A rt (right). A BALLOON, 2.5 X 12MM NC EUPHORA 12MM over a WIRE, LUGE 182CM 182CM in the LAD Mid was inflated using a 30 9:41:21 TREVIN INDEFLATOR at 12 trevin for 60 sec. A BALLOON, 2.5 X 12MM NC EUPHORA 12MM over a WIRE, LUGE 182CM 182CM in the LAD Mid was inflated using a 30 9:42:51 TREVIN INDEFLATOR at 12 trevin for 40 sec. 9:43:32 HR=59 bpm, EAEG=700/76 mmhg, SpO2=93.0 %, Resp=19 B/min, Pain=0, Jigna=10, Muñiz=2 9:43:52 Balloon Removed. 9:44:44 Activated Clotting Time Drawn A STENT, 2.5 18MM CONSTANCE 2.5 18MM was advanced through a XB 3.5 GUIDE CATHETER FR 6 over a WIRE, L UGE 182CM 9:45:19 182CM. A STENT, 2.5 18MM CONSTANCE 2.5 18MM was deployed using a 30 TREVIN INDEFLATOR at 16 atmospheres for 30 seconds in 9:46:29 the LAD Mid. 9:47:50 Delivery device removed 9:48:35 HR=55 bpm, PMUD=076/79 mmhg, SpO2=93.0 %, Resp=19 B/min, Pain=0, Jigna=10, Muñiz=2 9:49:13 A BALLOON, 2.5 X 12MM NC EUPHORA 12MM was inserted over WIRE, LUGE 182CM 182CM via the Fem A rt (right). A BALLOON, 2.5 X 12MM NC EUPHORA 12MM over a WIRE, LUGE 182CM 182CM in the LAD Mid was inflated using a 30 9:50:24 TREVIN INDEFLATOR at 20 trevin for 35 sec. 9:50:58 ACT (Normal Range 90-180) = ~ACT~ 9:51:43 2000 units HEPARIN given in lab by Dmaaso Potts RN in Left Hand via Peripheral IV. Ordered b y Luis Gilman. 9:52:30 Balloon Removed. 9:53:36 HR=56 bpm, AVVV=889/82 mmhg, SpO2=93.0 %, Resp=19 B/min, Pain=0, Jigna=10, Muñiz=2 9:53:56 A BALLOON, 2.75 X 15MM NC EUPHORA 15MM was inserted over WIRE, LUGE 182CM 182CM via the Fem Art (right). A BALLOON, 2.75 X 15MM NC EUPHORA 15MM over a WIRE, LUGE 182CM 182CM in the LAD Mid was inflate d using a 9:55:14 30 TREVIN INDEFLATOR at 18 trevin for 26 sec. A BALLOON, 2.75 X 15MM NC EUPHORA 15MM over a WIRE, LUGE 182CM 182CM in the LAD Mid was inflate d using a 9:56:05 30 TREVIN INDEFLATOR at 22 trevin for 45 sec. 9:57:14 Balloon Removed. 9:58:16 Wire removed 9:58:35 HR=59 bpm, MGOV=906/76 mmhg, SpO2=93.0 %, Resp=17 B/min, Pain=0, Jigna=10, Muñiz=2 9:58:57 Catheter was removed 10:00:43 An injection in the Fem Art (right) was made through the SHEATH, FR6.5 PRELUDE 11CM FR 6.5. 10:02:32 VASCADE, FR6 CLOSURE SYSTEM FR 6\7 placement in the Fem Art (right) 10:03:26 Activated Clotting Time Drawn 10:03:36 HR=59 bpm, KONR=844/79 mmhg, SpO2=95 %, Resp=14 B/min, Pain=0, Jigna=10, Muñiz=2 10:06:12 Case End Assessment: Final Case, HR=56 BPM, Rhythm=sr, HRIC=966/72 mmhg, Edema=Mild, Color=Normal, Skin = Warm, Dry Right Pulses: Prashant Ped=2, Femoral=2 10:07:19 Left Pulses: Prashant Ped=2, Femoral=2 Neurological: State=Alert, Ox3, FRAZIER Respiration: Resp=19 B/min, SpO2=97 % 10:07:25 Catheter(s) removed without difficulty 10:07:42 600 mg PLAVIX given in lab by Damaso Potts RN via Oral. Ordered by Luis Gilman. 10:07:56 No case complications noted. 10:07:58 Sterile dressing applied to site 10:07:59 Cine recording checked. 10:08:01 Bedside Report will be given. 10:08:04 A Left and Right Heart Cath was performed. 10:08:06 Implantable Device card placed in patient's chart. 10:08:37 HR=62 bpm, HTNI=938/77 mmhg, SpO2=93.0 %, Resp=12 B/min, Pain=0, Jigna=10, Muñiz=2 10:09:42 ACT (Normal Range 90-180) = 334 10:09:56 venous Sheath removed; pressure applied to access site. 10:13:40 HR=57 bpm, MVAI=714/77 mmhg, SpO2=94.0 %, Resp=11 B/min, Pain=0, Jigna=10, Muñiz=2 10:18:35 Vitals capture stopped. 10:21:17 Patient moved to stretcher End Study - Contrast Media Used In Study Contrast Total Opened (mL) Total Used (mL) Total Wasted (mL) Omnipaque 125 125 0 End Study - Maximum Contrast Load Max Contrast Load (mL) 431.5 End Study - Radiation Exposure Fluoro Time (minutes) 20.4 End Study - Sheaths Sheaths Pulled By Sheath Hold Time (min) Luis Gilman End Study - Patient Disposition Complications Transferred To Interventional Outcome No Telemetry Bed No attempt made
[2017-10-04] MEDS ORDERED: MISC INFORMATION XX ONE (10:30)
[2017-10-04] MEDS ORDERED: CLOPIDOGREL 300 MG TAB PO ONE (10:30)
[2017-10-04] MEDS ORDERED: BACITRACIN OINT 0.9 GM PKT TOP ONE (10:30)
[2017-10-04] MEDS ORDERED: SODIUM CHLORIDE 0.9% FLUSH 10 ML FLUSH IV FLUSH PRN (10:30)
--- NOTE | 2017-10-04 11:13 | MA ---
cc: Luis Gilman MD DATE: 10/04/2017 REFERRING PHYSICIAN: Dr. Michael Thayer DATE OF PROCEDURE: 10/04/2017. PROCEDURE 1. Left heart catheterization. 2. Coronary arteriography. 3. Percutaneous transluminal coronary angioplasty with drug-eluting stent implant mid-LAD. 4. Right femoral angiography. 5. Vascade closure device right femoral artery. PROCEDURE TECHNIQUE: The patient was brought to the cardiac catheterization laboratory and the area of the right groin prepped and draped in usual sterile manner. Following 15 mL of 1% Xylocaine local anesthesia, the right femoral artery was entered using an 18-gauge needle with the use of fluoroscopic guidance for positioning. A 6-Yakut short introducer sheath was placed in the right femoral artery and a 7 Yakut sheath placed in right femoral vein via the modified Seldinger technique. Through the venous introducer sheath, a 6-Yakut Aylett-Kimmie thermodilution catheter was passed to the right heart and pressures measured in the right atrium, right ventricle, pulmonary artery and pulmonary capillary wedge positions. Triplicate thermodilution cardiac outputs were performed. Oxygen saturations were drawn from the pulmonary artery, right ventricle, high, mid and low right atrium as well as the aorta and this catheter was then removed. Attention was turned to the left heart study. A 6-Yakut, JL4.5 diagnostic catheter, a 3DRC catheter was used for the left heart study. Multiple projections of the left and right coronaries were taken. Left ventriculogram was not performed in the interest of reducing contrast load due to renal insufficiency. Following the diagnostic study, significant stenosis was seen in 2 vessels including the LAD and the posterior descending branch of the right coronary artery and it was decided to proceed with intervention. The diagnostic catheters were removed and replaced by a 6-Yakut XP 3.5 guide catheter which was passed to the left coronary artery. The patient was given multiple doses of heparin to maintain an ACT of 300 seconds. Through the guiding catheter, a loose 0.014 floppy wire was passed into the left coronary artery and placed distally in the LAD. Over this wire , a Euphora NC 2.5 x 12 mm balloon was passed across the stenosis in the mid-LAD and inflated multiple times to a maximum pressure of 14 atmospheres for up to 1 minute. This balloon catheter was deflated and removed. An Sycamore 2.5 x 18 mm stent was then deployed across the stenosis in the mid-LAD at a maximum pressure of 16 atmospheres for 45 seconds. This balloon deployment catheter was deflated and removed. Followup inflations were again performed with the Euphoria NC 2.5 x 12 mm balloon catheter which was taken to 20 atmospheres, but because of still inadequate expansion of the stent in the mid-portion, it was decided to up-size this balloon to a Euphora NC 2.75 x 15 mm balloon which was taken to 20 atmospheres for 35 seconds. This post-dilatation balloon catheter was deflated and removed and final pictures were taken with and without the guidewire in place. A good result was seen. The guiding catheter was removed. It was decided not to proceed directly with intervention to the posterior descending branch of the right coronary artery at this time to conserve contrast load due to renal insufficiency. Possible plan is for a staged procedure in a couple of weeks. HEMODYNAMIC DATA: RIGHT HEART PRESSURES: Right atrium: A wave equals 20, V wave equals 10, mean equals 10 mmHg. Right ventricle: 32/9 mmHg. Pulmonary capillary wedge pressure: A wave equals 13, V wave equals 13, mean equals 11 mmHg. Pulmonary artery pressure: 29/15 mmHg with a mean pulmonary artery pressure of 20 mmHg. The oxygen saturations showed no evidence of shunting or step-up. LEFT HEART: The left ventricle was not entered. Systemic pressure 123/56 mmHg with a mean arterial pressure of 81 mmHg. For complete hemodynamic details, please see accompanying paperwork. ANGIOGRAPHIC FINDINGS: LEFT VENTRICLE: Not performed. LEFT CORONARY ARTERY: Left main trunk: The left main trunk arises normally from the left coronary sinus. There is only mild luminal irregularities. This is a prongyjj-mh-cnzsy caliber vessel. LEFT ANTERIOR DESCENDING ARTERY: The LAD is a moderate-sized vessel, whose course ends prior to the apex. There is 1 major septal perforating branch and a small diagonal branch. This vessel has a 10-15% narrowing in the proximal segment, followed by a 95% stenosis in the mid-segment just beyond the major septal perforating branch. There is diffuse disease in the distal segment, as it approaches the apex with very small vessel in this region. The diagonal is small in caliber with mild irregularities. RAMUS INTERMEDIUS: Moderate to large caliber vessel. Moderate luminal irregularities, less than 10% stenosis. CIRCUMFLEX: Small caliber vessel. Nondominant. Moderate diffuse disease with up to 40-50% stenosis. RIGHT CORONARY ARTERY: Dominant. Right coronary artery is a large caliber vessel. There is 10-15% narrowing in the mid-segment. It gives rise to a right ventricular marginal branch, posterior descending branch, and posterior ventricular branch. The RV branch is small in caliber and normal. The posterior descending branch is small to medium in caliber with a 95% stenosis in its mid-segment. The posterior ventricular branch is moderate in caliber. There are 2 posterior ventricular branches. The first one is moderate in caliber with mild luminal irregularities and areas of up to 20-25% narrowing and a second posterior ventricular branch which is small in caliber with mild diffuse luminal irregularities. ANGIOGRAPHIC RESULTS: In the mid-portion of the left anterior descending artery, a vessel of approximately 2.75 mm in caliber, there is a type B2 lesion obstructing the lumen by up to 95% of its diameter. Following balloon inflations and subsequent stent implant and followup balloon inflations, there is 0% residual luminal diameter stenosis. No intimal disruption is seen and distal flow was DARON grade 2 prior to the procedure, and DARON grade 3 at completion of the procedure. There remained some small vessel diffuse distal LAD disease noted near the apex. DIAGNOSES: 1. Dyspnea on exertion as anginal equivalent. 2. Severe two-vessel coronary atherosclerosis. 3. Normal left ventricular function by recent echocardiography. 4. Normal right heart pressures. 5. Successful percutaneous coronary intervention/drug-eluting stent implant mid-left anterior descending. COMMENTS/RECOMMENDATIONS: Angiographically, this patient had an excellent result after stenting of his mid-LAD today. He does have significant disease in a small to medium-sized posterior descending branch which will be treated medically for now. If his symptoms do not improve, we will plan a staged procedure and returned to the [facility] in a few weeks for intervention to the RCA/PDA. The patient has been loaded on Plavix today. If ambulatory and stable later today, he will be discharged to home, otherwise he will be observed overnight. MD GIOVANA Pappas/BOB , 10:25 AM , 11:12 AM
[2017-10-04] MEDS ORDERED: SODIUM CHLORIDE 0.9% FLUSH 10 ML FLUSH IV FLUSH SCH (21:00)
[2017-10-05] MEDS ORDERED: ASPIRIN 325 MG TAB PO SCH (09:00)
[2017-10-05] MEDS ORDERED: CLOPIDOGREL 75 MG TAB PO SCH (09:00)
== END 2017-10-04 15:44 | disposition home or self-care (01) ==
LOC: HDOC 06:32 → HDIC 06:33 → HDOC 15:44
PROVIDERS: ATTEND Internal Medicine Interventional Cardiology
DX: I25.10 Atherosclerotic heart disease of native coronary artery without angina pectoris (principal); I10 Essential (primary) hypertension; J44.9 Chronic obstructive pulmonary disease, unspecified; E11.9 Type 2 diabetes mellitus without complications; Z79.84 Long term (current) use of oral hypoglycemic drugs
CPT/HCPCS: 80048; 82810; 83880; 85002; 92928; 93456; 99152; C1725; C1760; C1769; C1874; C1887; C1893; J1644; J2250; J3010; Q9967